=== PATIENT | female | born 1940 | race Hispanic/Latino ===

== ENCOUNTER 2017-05-17 08:47 | Day surgery (SDC) | payer MEDICARE ==
[2017-05-10 08:35] VITALS: BMI 23.8
[2017-05-10 09:28] VITALS: RESP 18
[2017-05-17] MEDS ORDERED: Acetylcholine 1% Opth System Pack IO ONE ×2 (09:19→14:27)
[2017-05-17] MEDS ORDERED: Tetracaine 0.5% Ophth 2 ML BOTTLE ONE (09:19)
[2017-05-17] MEDS ORDERED: Maxitrol Opht Susp ONE (09:19)
[2017-05-17] MEDS ORDERED: Pilocarpine 1% Opht Soln ONE (09:20)
[2017-05-17] MEDS ORDERED: EPINEPHrine 1 mg/ml (1:1000) Inj ONE (09:20)
[2017-05-17] MEDS ORDERED: Lidocaine 1% 20 MG/2 ML PF AMP ONE (09:20)
[2017-05-17] MEDS ORDERED: CA CL/K CL/NA CL 500 ML IR ONE (09:20)
[2017-05-17] MEDS ORDERED: BSS 15 ML 45 ML IR ONE (09:21)
[2017-05-17] MEDS ORDERED: Chondroitin/Hyaluronate Opth Syringe KIT (0.55 ml-0.5 ml) IO ONE ×2 (09:21→14:23)
[2017-05-17] MEDS ORDERED: Phenylephrine 2.5% Opht Soln OD ONE ×2 (10:00→10:50)
[2017-05-17] MEDS ORDERED: Tropicamide 1% Opht 150 DROP/15 ML OD ONE ×2 (10:00→10:50)
[2017-05-17] MEDS ORDERED: Flurbiprofen 0.3% Opht SOLN OD ONE ×2 (10:00→10:50)
[2017-05-17] MEDS ORDERED: Lactated Ringer's 1,000 ML IV ONE (10:57)
[2017-05-17] MEDS ORDERED: Midazolam 2 MG/2 ML VIAL ONE (13:58)
[2017-05-17] MEDS ORDERED: Povidone Iodine 5% Opht SOLUTION OU ONE (14:19)
[2017-05-17] MEDS ORDERED: BSS 15 ML SOL IR ONE (14:25)
[2017-05-17] MEDS ORDERED: Maxitrol Opht Susp OS ONE ×2 (14:27→14:28)
[2017-05-17] MEDS ORDERED: Pilocarpine 1% Opht Soln OS ONE (14:27)
[2017-05-17 16:55] VITALS: BP 158/86; PULSE 67; TEMP 97.4; O2SAT 97
--- NOTE | 2017-05-19 08:40 | OP ---
PROCEDURE DATE : 05/17/2017 SURGEON: KEY HAJI MD ANESTHESIOLOGIST: NAFISA PEREIRA MD ANESTHESIA: LOCAL / IV SEDATION PREOPERATIVE DIAGNOSIS: CATARACT RIGHT EYE. POSTOPERATIVE DIAGNOSIS: CATARACT RIGHT EYE. OPERATION: CLEAR CORNEAL PHACOEMULSIFICATION WITH LENS IMPLANT RIGHT EYE. PREPARATION AND PROCEDURE: After the patient was prepped and draped in the usual manner for sterile ophthalmic surgery, local IV sedation was administered ; eye seals were applied to the upper and lower lid margins and an adult wire lid speculum was placed within the lids. Under microsurgical control, a two- step clear corneal incision was made into the anterior chamber. The initial incision was perpendicular to the corneal plane. The second incision with the keratome was placed at a 45-degree angle to the first incision. One cc of one percent Xylocaine MPF was instilled into the anterior chamber to achieve proper intraocular anesthesia. At this time, the Viscoelastic was injected into the anterior chamber for protection of the endothelium and for maintenance of the chamber depth. A 360-degree continuous curvilinear capsulorrhexis was performed using a pre-bent 25-gauge needle. Hydrodissection and hydrodelineation were performed using a Coley cannula and balanced salt solution. Utilizing the tip of the Coley cannula, the nucleus was rotated freely within the capsular bag. A standard one-handed phacoemulsification was utilized at this time for sculpting and rotating of the nucleus. The nucleus was fragmented in its entirety and aspirated without any consequence. A standard I&A was carried out for the residual cortical material. No residual material was noted within the capsular bag. The posterior capsule was noted to be clear. Additional Viscoelastic was injected into the capsular bag in preparation for lens implantation. After this has been satisfactorily achieved the intraocular lens injected through the corneal incision into the capsular bag. The intraocular lens was manipulated until it was properly oriented and the Viscoelastic was evacuated from the capsular bag and anterior chamber. The anterior chamber was reformed with balanced salt solution. The corneal incision was irrigated with BSS. The intraocular pressure was found to be within normal limits. This terminated the procedure. The speculum and lid drapes were removed. TobraDex ophthalmic suspension and Piloc[place] 1% drops one drop was applied to the eye. POSTOPERATIVE CONDITION: The patient was brought to the Post anesthesia Recovery area with stable vital signs. DKEY LUO MDD
== END 2017-05-17 17:01 | disposition home or self-care (01) ==
LOC: H.OPSURG 08:47
PROVIDERS: ATTEND Ophthalmology
DX: H26.9 Unspecified cataract (principal); I10 Essential (primary) hypertension; E78.5 Hyperlipidemia, unspecified; E03.9 Hypothyroidism, unspecified; E53.8 Deficiency of other specified B group vitamins; E54 Ascorbic acid deficiency; E55.9 Vitamin D deficiency, unspecified; L40.9 Psoriasis, unspecified; G47.9 Sleep disorder, unspecified; F41.9 Anxiety disorder, unspecified; F32.89 Other specified depressive episodes; Z90.710 Acquired absence of both cervix and uterus
CPT/HCPCS: 66984; J0171; J2250; J3010; J7120; V2632

== ENCOUNTER 2018-06-20 22:35 | Emergency (ER) | payer MEDICARE ==
[2018-06-20 22:36] VITALS: BMI 23.8
[2018-06-20 22:59] VITALS: BP 169/84; PULSE 87; RESP 16; TEMP 97.7; O2SAT 98
--- NOTE | 2018-06-20 23:42 | ED PDOC ---
HPI: General Adult Time Seen by Provider: 06/20/18 23:07 Chief Complaint (Nursing): Back Pain Chief Complaint (Provider): Neck and Scapula Pain History Per: Patient History/Exam Limitations: no limitations Onset/Duration Of Symptoms: Hrs (x2) Current Symptoms Are (Timing): Gone Now Additional Complaint(s): 78 year old female with a history of hypertension, hypothyroidism, and postherpetic neuralgia presents to the ED with left sided neck and scapula pain for about 2 hours. Patient reports she was sitting on soda when she suddenly developed sharp, left sided neck pain that lasted for a few seconds and resolved by itself. Neck pain returned 4 more times, but she reports no associated nausea, vomiting, diaphoresis, shortness of breath, or chest pain. On the most recent episode, she states she also experiences left scapular pain. Patient reports pain was nonreproducible and unaffected by any movement. She has no symptoms at present: PMD: Dr. Andrade Past Medical History Reviewed: Historical Data, Nursing Documentation, Vital Signs Vital Signs: Last Vital Signs Temp 97.7 F 06/20/18 22:55 Pulse 87 06/20/18 22:55 Resp 16 06/20/18 22:55 BP 169/84 H 06/20/18 22:55 Pulse Ox 98 06/20/18 22:55 - Medical History PMH: Anxiety, Colonic Polyps, Depression, HTN, Hypercholesterolemia, Hyperthyro idism, Hypothyroidism, Pneumonia, Chronic Kidney Disease Other PMH: postherpetic neuralgia - Surgical History Surgical History: Appendectomy Other surgeries: hysterectomy and breast surgery - Family History Family History: States: Unknown Family Hx - Social History Current smoker - smoking cessation education provided: No Ex-Smoker (has not smoked in the last 12 months): No Alcohol: None Drugs: Denies - Home Medications Home Medications: Ambulatory Orders Medication Instructions Recorded Allopurinol 100 mg PO DAILY 02/20/14 Amitriptyline [Elavil] 25 mg PO HS 02/20/14 Ascorbic Acid [Vitamin C] 500 mg PO DAILY 02/20/14 Cyanocobalamin (Vitamin B-12) 1,000 mg PO DAILY 02/20/14 [Vitamin B12] [place]-3 Fatty Acids [Fish Oil 300 mg PO DAILY 02/20/14 Regular with Natural [place]-3] Pregabalin [Lyrica] 150 mg PO DAILY 02/20/14 Pyridoxine [Vitamin B6] 100 mg PO DAILY 02/20/14 Sevelamer Carbonate [Renvela] 800 mg PO DAILY 02/20/14 Simvastatin 20 mg PO DAILY 02/20/14 Thyroid [[place] Thyroid] 30 mg PO DAILY 02/20/14 Valsartan [Diovan] 80 mg PO DAILY 02/20/14 Vitamin E 1,000 iu PO DAILY 02/20/14 Aspirin 1 tab PO DAILY 02/15/17 - Allergies Allergies/Adverse Reactions: Allergies Allergy/AdvReac Type Severity Reaction Status Date / Time No Known Allergies Allergy Verified 02/20/14 06:43 Review of Systems ROS Statement: Except As Marked, All Systems Reviewed And Found Negative Musculoskeletal: Positive for: Neck Pain, Other (scapula pain ) Physical Exam - Reviewed Nursing Documentation Reviewed: Yes Vital Signs Reviewed: Yes - Physical Exam Appears: Positive for: Non-toxic, No Acute Distress Head Exam: Positive for: ATRAUMATIC, NORMOCEPHALIC Skin: Positive for: Normal Color, Warm, Dry Eye Exam: Positive for: Normal appearance, EOMI, PERRL Neck: Positive for: Normal Cardiovascular/Chest: Positive for: Regular Rate, Rhythm. Negative for: Murmur Respiratory: Positive for: Normal Breath Sounds. Negative for: Respiratory Distress Gastrointestinal/Abdominal: Positive for: Normal Exam, Soft. Negative for: Tenderness Back: Positive for: Normal Inspection Extremity: Positive for: Normal ROM (upper and lower). Negative for: Pedal Edema, Deformity Neurologic/Psych: Positive for: Alert, Oriented (x3) - Laboratory Results Result Diagrams: 06/20/18 23:40 06/20/18 23:40 - ECG O2 Sat by Pulse Oximetry: 98 (RA) Pulse Ox Interpretation: Normal Medical Decision Making Medical Decision Making: Time: 2324 Initial Impression: 78 yo female with left sided neck pain Initial Plan: --Labs --EKG --CXR Time: 51 --Labs reviewed, show no clinically significant abnormalities. Patient is stable for discharge home. Diagnosis neck pain. Scribe Attestation: Documented by Blank Eid, acting as a scribe for Galindo Garcia MD Provider Scribe Attestation: All medical record entries made by the Scribe were at my direction and p ersonally dictated by me. I have reviewed the chart and agree that the record accurately reflects my personal performance of the history, physical exam, medical decision making, and the department course for this patient. I have also personally directed, reviewed, and agree with the discharge instructions and disposition. Disposition - Clinical Impression Clinical Impression: Neck pain - Disposition Disposition Time: 00:52 Condition: STABLE Instructions: Neck Pain Forms: [facility] (Lebanese)
[2018-06-20 23:48] LABS: BASO % 0.7 % (0.0-2.0); EOS # 0.2 K/uL (0.0-0.7); HEMOGLOBIN 12.3 g/dL (12.0-16.0); LYMPH # 2.1 K/uL (1.0-4.3); LYMPH % 28.2 % (20.0-40.0); MEAN CELL VOLUME 88.5 fl (81.0-99.0); MEAN CORPUSCULAR HEMOGLOBIN 28.4 pg (27.0-31.0); MEAN CORPUSCULAR HGB CONC 32.1 g/dL (33.0-37.0); MEAN PLATELET VOLUME 7.2 fl (7.2-11.7); MONO # 0.8 K/uL (0.0-0.8); MONO % 10.5 % (0.0-10.0); NEUT # 4.2 K/uL (1.8-7.0); NEUT % 57.6 % (50.0-75.0); NRBC % 0.1 % (0.0-0.0); RBC 4.33 Mil/uL (3.80-5.20); RED CELL DISTRIBUTION WIDTH 14.2 % (11.5-14.5); WHITE BLOOD COUNT 7.3 K/uL (4.8-10.8)
[2018-06-21 00:11] LABS: ALB/GLOB RATIO 1.2 (1.0-2.1); ALBUMIN 4.2 g/dL (3.5-5.0); ALT/SGPT 37 U/L (9-52); AST/SGOT 37 U/L (14-36); BLOOD UREA NITROGEN 30 mg/dl (7-17); CALCIUM 9.7 mg/dL (8.4-10.2); GFR NON-AFRICAN AMERICAN > 60
--- NOTE | 2018-06-21 07:49 | CARD ---
APPROVED REPORT Date of service: 06/20/2018 EKG Measurement Heart [id number] <Conclusion> Normal sinus rhythm Moderate voltage criteria for LVH, may be normal variant Cannot rule out Septal infarct, age undetermined Abnormal ECG
--- NOTE | 2018-06-21 08:47 | RAD ---
Date of service: 06/20/2018 HISTORY: chest pain COMPARISON: 05/10/2017 FINDINGS: LUNGS: No active pulmonary disease. PLEURA: No significant pleural effusion identified, no pneumothorax apparent. CARDIOVASCULAR: No aortic atherosclerotic calcification present. Probable top-normal heart size. Mild unfolding prominence of the thoracic aorta not significantly changed. No pulmonary vascular congestion. OSSEOUS STRUCTURES: No significant abnormalities. VISUALIZED UPPER ABDOMEN: Normal. OTHER FINDINGS: None. IMPRESSION: No active disease. No interval pathology noted
== END 2018-06-21 00:59 | disposition home or self-care (01) ==
LOC: H.ER 22:35
DX: M54.2 Cervicalgia (principal); E03.9 Hypothyroidism, unspecified; E05.90 Thyrotoxicosis, unspecified without thyrotoxic crisis or storm; E78.00 Pure hypercholesterolemia, unspecified; I12.9 Hypertensive chronic kidney disease with stage 1 through stage 4 chronic kidney disease, or unspecified chronic kidney disease; B02.29 Other postherpetic nervous system involvement